=== PATIENT | female | born 1945 | race Caucasian/White ===

== ENCOUNTER 2024-03-16 08:35 | Day surgery (SDC) | payer MEDICARE, OTHER ==
[~2024-03-16 08:35] MED LIST: NEURONTIN PO ONE
[2024-03-16] MEDS ORDERED: Lactated Ringers 1,000 ML IV ONE ×2 (08:50→11:19)
[2024-03-16] MEDS: Lactated Ringers 1,000 ML IV SCH (08:50)
[2024-03-16] MEDS: CEFAZOLIN 2 GM/100 ML NaCl 2 GM/100 ML IVPB IV SCH (09:08)
[2024-03-16] MEDS ORDERED: CEFAZOLIN 2 GM/100 ML NaCl 2 GM/100 ML IVPB IV ONE (09:08)
[2024-03-16 09:09] LABS: Hematocrit 38.9 % (34.1-44.9); Hemoglobin 12.7 g/dL (11.2-15.7); Mean Cell Volume 94.6 fL (79.4-94.8); Mean Corpuscular Hemoglobin 30.9 pg (25.6-32.2); Mean Corpuscular Hgb Concent. 32.6 g/dL (32.2-35.5); Mean Platelet Volume 9.9 fL (9.4-12.3); Platelet Count 176 x10^3/uL (182-369); Red Blood Count 4.11 x10^6/uL (3.93-5.22); Red Cell Distribution Width 13.5 % (11.7-14.4); White Blood Count 3.8 x10^3/uL (3.98-10.04)
[2024-03-16 09:24] LABS: ANION GAP 14.4 MEQ/L (5-15); Calcium 9.3 mg/dL (8.4-10.2); Creatinine 1 0.93 mg/dL (0.52-1.04); EST GLOMERULAR FILTRATION RATE 62.5 ML/MIN
[2024-03-16] MEDS ORDERED: TYLENOL EXTRA STRENGTH 500 MG ONE (09:38)
[2024-03-16] MEDS ORDERED: NEURONTIN ONE (09:38)
[2024-03-16] MEDS ORDERED: celeBREX 100 MG ONE (09:38)
[2024-03-16] MEDS ORDERED: Decadron 4 MG ONE (09:38)
[2024-03-16] MEDS: celeBREX 100 MG PO ONE (09:40)
[2024-03-16] MEDS: NEURONTIN PO ONE (09:40)
[2024-03-16] MEDS: Decadron 4 MG PO ONE (09:41)
[2024-03-16] MEDS: TYLENOL EXTRA STRENGTH 500 MG PO ONE (09:41)
[2024-03-16] MEDS ORDERED: SUBLIMAZE 100 MCG/2 ML ONE (09:52)
[2024-03-16] MEDS ORDERED: Versed 2 MG/2 ML Injection ONE (09:53)
[2024-03-16] MEDS ORDERED: Marcaine Mpf 0.5% Vial 30 Ml ONE (09:56)
[2024-03-16] MEDS ORDERED: EXPAREL 133 MG/10 ML VIAL IJ ONE (09:56)
[2024-03-16] MEDS ORDERED: Xylocaine-Mpf 2% 5 Ml Vial ONE ×2 (09:58→11:37)
[2024-03-16] MEDS ORDERED: Epinephrine Preservative Free 1 MG/ML ONE ×3 (10:48→10:55)
[2024-03-16] MEDS ORDERED: MARCAINE 0.25% PF/ EPI 1:200,000 ONE (10:48)
[2024-03-16] MEDS ORDERED: Decadron 4 MG INJ ONE (11:35)
[2024-03-16] MEDS ORDERED: Zofran 4 MG/2 ML VIAL ONE (11:35)
[2024-03-16] MEDS ORDERED: DIPRIVAN 200 MG/20 ML IV ONE (11:36)
[2024-03-16] MEDS ORDERED: ROCURONIUM BROMIDE IV ONE (11:42)
[2024-03-16] MEDS ORDERED: ROBINUL ONE (12:05)
[2024-03-16] MEDS ORDERED: Ephedrine Sulfate 50 MG/ML ONE (12:28)
[2024-03-16] MEDS ORDERED: BRIDION 200MG/2ML IV ONE (13:33)
[2024-03-16 14:37] VITALS: PULSE 64; RESP 16
[2024-03-16 15:02] VITALS: BP 160/75; TEMP 97.2; O2SAT 94
--- NOTE | 2024-03-18 08:46 | OP ---
SURGERY DATE/TIME: 03/16/2024 [id number] PREOPERATIVE DIAGNOSES: 1) Right shoulder pain. 2) Partial tear right rotator cuff. 3) Osteoarthritis, right shoulder. POSTOPERATIVE DIAGNOSES: 1) Right shoulder pain. 2) Partial tear right rotator cuff. 3) Osteoarthritis, right shoulder. PROCEDURE: 1) Diagnostic arthroscopy, right shoulder. 2) Arthroscopic subacromial decompression, right shoulder. 3) Open excision distal clavicle, right shoulder. SURGEON: Rufus Abreu MD. INDICATIONS: This patient has been followed in the office for right shoulder pain and weakness. She has had trouble with her left shoulder in the past with similar symptoms and this was treated with subacromial decompression with a good outcome. MRI has been obtained which shows partial tears of the supraspinatus and subscapularis but the tears did not appear to be full thickness. We discussed treatment options and elected for surgical management since she did not improve with conservative care. DESCRIPTION OF PROCEDURE AND FINDINGS: Patient was seen preoperatively and the operative limb was identified, confirmed, and initialed. She received Ancef 2 grams IV and was taken to the operating room. She was placed under general anesthesia in supine position but then repositioned in a beach chair position. Sterile prep and drape of the right shoulder region were carried out. We then attached the pneumatic arm positioning device. Bony landmarks were traced onto skin. Time-out was obtained. Arthroscopic portal was placed in the back of the shoulder for viewing the joint. The glenohumeral surfaces were identified. 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 No loose bodies were seen in the lower pouch. The labrum demonstrated fraying on the superior side. The biceps tendon was visualized and was normal in appearance. We established an anterior portal utilizing a switching stick passed through the shoulder with retrograde insertion of the cannula over the switching stick. We were then able to probe the biceps tendon which was normal in appearance. We identified the undersurface of the rotator cuff. We followed the supraspinatus out to its insertion and noted no full-thickness tearing and minimal visible fraying. The supraspinatus was examined out to its insertion and we noted no fraying of the undersurface of the rotator cuff. We inserted a thermal wand device through the anterior portal and used this to debride the superior labrum where some fraying was noted. We then advanced into the subacromial bursa. A lateral portal was established and we used a wand to debride bursal tissue and delineate the borders of the acromion. We were able to visualize the bursal surface of the rotator cuff and noted no evidence of significant fraying or tearing. We used the wand to clean out over to the acromioclavicular joint and visualized the distal clavicle. A bur was then reduced from the lateral side and used to decompress the subacromial space over to the clavicle. An incision was then made in sagittal fashion over the acromioclavicular joint and the distal clavicle was exposed. Cautery was used to perform subperiosteal dissection to expose the distal clavicle. We then excised the distal clavicle with a power saw. Once that was done, we palpated this gap to ensure that sufficient resection was carried out. We then closed the musculotendinous sleeve back over the acromioclavicular joint area. This was secured with #1 Vicryl. We then closed the portals with claire and the incision with 2-0 Vicryl and claire. She then had a sterile dressing applied and was taken to recovery room. A preoperative interscalene block was administered with Exparel by anesthesia staff.
== END 2024-03-16 15:25 | disposition home or self-care (01) ==
LOC: SDC 08:35
PROVIDERS: ATTEND Orthopaedic Surgery
DX: M75.41 Impingement syndrome of right shoulder (principal); M19.011 Primary osteoarthritis, right shoulder; M75.111 Incomplete rotator cuff tear or rupture of right shoulder, not specified as traumatic; M50.30 Other cervical disc degeneration, unspecified cervical region; M25.511 Pain in right shoulder
CPT/HCPCS: 36415; 80048; 85027; J0171; J0690; J1100; J2250; J2405; J2704; J3010; A9270-GY

== ENCOUNTER 2025-03-15 13:03 | Day surgery (SDC) | payer MEDICARE, OTHER ==
[2025-03-15] MEDS ORDERED: LIDOCAINE HCL 2% 100 MG/5 ML IJ ONE (13:04)
[2025-03-15] MEDS ORDERED: Lactated Ringers 1,000 ML IV ONE (15:43)
[2025-03-15] MEDS ORDERED: propofoL IV ONE (16:19)
--- NOTE | 2025-03-15 20:03 | XRAY ---
Indication: Left C2-C4 MBB. Intraoperative fluoroscopy provided for 9 seconds. 2 digital spot image submitted for interpretation demonstrates posterior needle tips projecting over expected left C2-C4 nerve roots. Correlate with intraoperative findings/report. Incidental lower cervical fusion hardware.
--- NOTE | 2025-03-15 20:11 | XRAY ---
9 seconds of fluoroscopy used in surgery for a left C2-C4 MBB.
== END 2025-03-15 16:55 | disposition home or self-care (01) ==
LOC: SDC-PAIN 13:03
PROVIDERS: ATTEND Psychiatry & Neurology Pain Medicine
DX: M47.812 Spondylosis without myelopathy or radiculopathy, cervical region (principal)

== ENCOUNTER 2025-04-06 12:00 | Day surgery (SDC) | payer MEDICARE, OTHER ==
[2025-04-06] MEDS ORDERED: BUPIVACAINE 0.5% VIAL IJ ONE (12:01)
[2025-04-06] MEDS ORDERED: propofoL IV ONE (13:11)
[2025-04-06] MEDS ORDERED: Lactated Ringers 1,000 ML IV ONE (13:17)
--- NOTE | 2025-04-06 14:55 | XRAY ---
Indication: Left C2-C4 MBB. Intraoperative fluoroscopy provided for 19 seconds. 2 digital spot images submitted for interpretation demonstrates posterior needle tips projecting over expected left C2-C4 nerve roots. Correlate with intraoperative findings/report. Incidental lower cervical fusion hardware.
--- NOTE | 2025-04-06 17:00 | XRAY ---
21 seconds of fluoroscopy was used in surgery for a left C2-C4 MBB.
== END 2025-04-06 13:36 | disposition home or self-care (01) ==
LOC: SDC-PAIN 12:00
PROVIDERS: ATTEND Psychiatry & Neurology Pain Medicine
DX: M47.812 Spondylosis without myelopathy or radiculopathy, cervical region (principal)